=== PATIENT | male | born 1980 | race Caucasian/White ===

== ENCOUNTER 2020-01-10 12:53 | Inpatient (IN) | payer OTHER ==
[~2020-01-10] VITALS: Ht 182.9 cm; Wt 120.2 kg
--- NOTE | ~2020-01-10 | PROC ---
[address] [address] PROCEDURE REPORT Name: TOSHA CONNOR Room: [address] IN ..#: [id number] Admission: 01/10/20 Attend Phys: Trinidad Bello MD Discharge: Date of : 82 Report #: [id number] THIS REPORT FOR: //name// cc: FAM - No family physician/PCP FAM - No family physician/PCP ~ THIS REPORT FOR: //name// For GI report, please see the Provation report in Perceptive 7 content. By: [facility]3Medical Records Staff SUDARSHAN /SHERRY
[2020-01-10 13:04] VITALS: BP 150/93
[2020-01-10] MEDS ORDERED: FLONASE 0.05%50 MCG NARES (13:12)
[2020-01-10] MEDS ORDERED: PROAIR HFA8.5 GM INH (13:12)
[2020-01-10] MEDS ORDERED: SINGULAIR 10 MG10 MG PO (13:12)
[2020-01-10 13:31] LABS: ABSOLUTE BASOPHILS 0.1 thou/uL (0.0-0.2); ABSOLUTE EOSINOPHILS 0.2 thou/uL (0.0-0.7); ABSOLUTE LYMPHOCYTES 1.3 thou/uL (0.8-5.3); ABSOLUTE MONOCYTES 0.8 thou/uL (0.0-1.2); ABSOLUTE NEUTROPHILS 7.7 thou/uL (1.6-8.1); BASOPHILS 0.6 %; EOSINOPHILS 2.3 %; HEMATOCRIT 45.5 % (42.0-52.0); HEMOGLOBIN 16.3 gm/dL (14.0-18.0); LYMPHOCYTES 12.5 %; MCH 30.3 pg (26.0-34.0); MCHC 35.8 g/dL (28.0-37.0); MCV 84.5 fL (80.0-100.0); MONOCYTES 7.5 %; MPV 10.5 fl. (7.2-11.1); NUCLEATED RBCS 0 /100WBC; PLATELET COUNT* 207 thou/uL (150-400); POLYS 77.1 %; RBC 5.38 mil/uL (4.50-6.00); RDW-CV 12.6 % (10.5-14.5)
[2020-01-10 13:35] LABS: ANION GAP 10 mmol/L (7-16); BUN 6 mg/dL (7-18); CALCIUM 8.9 mg/dL (8.5-10.1); CHLORIDE 104 mmol/L (98-107); CO2 26 mmol/L (21-32); GLUCOSE 129 mg/dL (70-99); POTASSIUM 3.6 mmol/L (3.5-5.1); SODIUM 140 mmol/L (136-145)
[2020-01-10 13:47] LABS: ALBUMIN 4.4 g/dL (3.4-5.0); ALKALINE PHOSPHATASE 193 U/L (46-116); SGOT 282 U/L (15-37); SGPT 765 U/L (30-65); TOTAL BILIRUBIN 7.5 mg/dL (<0.1-1.0); TOTAL PROTEIN 7.5 g/dL (6.4-8.2)
[2020-01-10 14:05] LABS: LIPASE > 30000 U/L (73-393)
[2020-01-10 14:10] LABS: URINE BLOOD NEGATIVE (Negative); URINE CLARITY CLEAR; URINE COLOR DARK YELLOW; URINE GLUCOSE-RANDOM NEGATIVE (Negative); URINE KETONES TRACE (Negative); URINE LEUKOCYTES-REFLEX NEGATIVE (Negative); URINE NITRITE-REFLEX NEGATIVE (Negative); URINE PROTEIN NEGATIVE (Negative); URINE SPECIFIC GRAVITY 1.015 (1.005-1.030)
[2020-01-10 14:11] LABS: URINE BILIRUBIN 2+ (Negative)
[2020-01-10 14:13] LABS: ICTOTEST (BILI CONFIRMATORY) Positive (Negative)
[2020-01-10 14:50] VITALS: BP 149/94
--- NOTE | 2020-01-10 15:42 | EKG ---
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 : 1980 Requested By: Salomón Fortune Order Number: [id number] MD: Lavon Tam Measurements Intervals [place] Rate: 74 P: 49 DE: 174 QRS: 26 QRSD: 115 T: 1 QT: 396 QTc: 440 Interpretive Statements Sinus rhythm Nonspecific intraventricular conduction delay Borderline T abnormalities, inferior leads No previous ECG available for comparison Electronically Signed On 01-10-2020 15:41:54 CDT by Lavon Tam [email or web address] <ELECTRONICALLY SIGNED> By: Lavon Tam MD, [facility] 01/10/20 1541 1307 1307 Lavon Tam MD, [facility] /EPI
--- NOTE | 2020-01-10 17:47 | NUR ---
Pt admitted to room 112. Pt is AOx4, at bedside. VSS. Pt c/o severe abdominal pain on arrival, anxious at times. Pt receiving IV fentanyl for pain and tolerated IV bolus of fluids. NS running continuously at 100/hr. Pt is up ad deacon in room. NPO, no n/v this shift. hourly rounding complete, will continue to monitor
--- NOTE | 2020-01-11 04:30 | NUR ---
PT HAD BETTER PAIN CONTROL WITH DILAUDID OVER FENTANYL, DENIES NAUSEA, STATES PAIN IN IN EPIGASTRIC AREA. FIRST VITALS HAD TEMP OF 100.2, MIDNIGHT TEMP WAS 98.4. PT HAS BEEN NPO WITH EXCEPTION OF SPARCE ICE CHIPS TO MOISTEN MOUTH. SAFETY MEASURES IN PLACE, TM
[2020-01-11 05:08] LABS: HEMATOCRIT 41.5 % (42.0-52.0); HEMOGLOBIN 14.6 gm/dL (14.0-18.0); MCH 30.2 pg (26.0-34.0); MCHC 35.2 g/dL (28.0-37.0); MCV 85.8 fL (80.0-100.0); MPV 10.5 fl. (7.2-11.1); RBC 4.84 mil/uL (4.50-6.00); RDW-CV 12.8 % (10.5-14.5); WBC 11.6 thou/uL (4.0-11.0)
[2020-01-11 05:32] LABS: ALBUMIN 3.5 g/dL (3.4-5.0); ALKALINE PHOSPHATASE 162 U/L (46-116); ANION GAP 9 mmol/L (7-16); BUN 12 mg/dL (7-18); CALCIUM 8.5 mg/dL (8.5-10.1); CHLORIDE 109 mmol/L (98-107); CHOLESTEROL 96 mg/dL (<200); CO2 25 mmol/L (21-32); CREATININE 1.3 mg/dL (0.6-1.3); GLUCOSE 96 mg/dL (70-99); HDL CHOLESTEROL 28 mg/dL (>40); LDL CHOLESTEROL 52 mg/dL (<100); MAGNESIUM 1.6 mg/dL (1.8-2.4); POTASSIUM 3.7 mmol/L (3.5-5.1); SGOT 168 U/L (15-37); SGPT 554 U/L (30-65); SODIUM 143 mmol/L (136-145); TC:HDL 3.4 Ratio (Not establshd); TOTAL BILIRUBIN 8.6 mg/dL (<0.1-1.0); TOTAL PROTEIN 5.9 g/dL (6.4-8.2); TRIGLYCERIDE 83 mg/dL (<150); VLDL 17 mg/dL (<40)
[2020-01-11 05:39] LABS: SERUM ASSESSMENT CLEAR
[2020-01-11 05:49] LABS: LIPASE 5464 U/L (73-393)
[2020-01-11 08:15] VITALS: BP 135/61
[2020-01-11 08:46] LABS: PROTIME 10.8 Seconds (9.20-11.50)
--- NOTE | 2020-01-11 14:33 | NUR ---
CM SPOKE TO THE PT TO DISCUSS DISCHARGE PLANNING NEEDS. PT A&O, INDEPENDENT WITH ADL'S, ACTIVE AND WORKS. PT OWNS 0 DME. NO NEEDS ANTICIPATED AT THIS TIME. CM WILL REMAIN AVAIABLE TO ASSIST AND FOLLOW NEEDED.
[2020-01-11 15:07] LABS: IgM 73 mg/dL (20-172)
--- NOTE | 2020-01-11 19:15 | NUR ---
Pt AOx4. Pt had procedure done today, c/o severe pain in abdomen, receiving IV dilaudid to manage pain. Pt is at the bedside and supportive. Pt receiving IVF at 150/hr and IV antibiotics tolerated well. will continue to leigha
[2020-01-12] VITALS: BP 146/89
[2020-01-12 02:06] LABS: HEPATITIS B SURFACE AG Negative (Negative)
[2020-01-12 03:44] VITALS: BP 141/73
[2020-01-12 05:04] LABS: HEMATOCRIT 35.7 % (42.0-52.0); HEMOGLOBIN 12.7 gm/dL (14.0-18.0); MCH 30.2 pg (26.0-34.0); MCHC 35.6 g/dL (28.0-37.0); MCV 84.9 fL (80.0-100.0); MPV 10.4 fl. (7.2-11.1); NUCLEATED RBCS 0 /100WBC
--- NOTE | 2020-01-12 05:10 | NUR ---
PT HAS BEEN SITTING IN HIGH FOWLERS MOST OF THIS SHIFT, HE STATES THAT WHEN HE RECLINES TO LIE ON HIS SIDE HE HAS PRESSURE IN MID EPIGASTRIC AREA. HAD MEDS FOR PAIN BUT DENIES NAUSEA, HE HAS WORN CONTINUOUS PULSE OX ALL HS WITH SATS IN 95-100% LEAVING 2L PER NC IN PLACE. HE IS COUGHING AND DEEP BREATHING WELL USING IS AT BEDSIDE. SAFETY MEASURES IN PLACE, WCTM
[2020-01-12 05:27] LABS: ALBUMIN 3.2 g/dL (3.4-5.0); CALCIUM 8.1 mg/dL (8.5-10.1); CREATININE 0.9 mg/dL (0.6-1.3); POTASSIUM 3.6 mmol/L (3.5-5.1); TOTAL BILIRUBIN 21.1 mg/dL (<0.1-1.0); TOTAL PROTEIN 5.6 g/dL (6.4-8.2)
[2020-01-12 05:32] LABS: MAGNESIUM 1.6 mg/dL (1.8-2.4)
[2020-01-12 05:34] LABS: % SATURATION 61 % (20-39); IRON 143 ug/dL (50-175)
[2020-01-12 06:02] LABS: PLATELET COUNT* 46 thou/uL (150-400)
[2020-01-12 07:13] LABS: LYMPHOCYTES ND %; POLYS ND %
[2020-01-12 07:18] LABS: HEMATOCRIT 34.9 % (42.0-52.0); HEMOGLOBIN 12.5 gm/dL (14.0-18.0); MCH 30.5 pg (26.0-34.0); MCHC 35.8 g/dL (28.0-37.0); MCV 85.4 fL (80.0-100.0); MPV 9.2 fl. (7.2-11.1); NUCLEATED RBCS 0 /100WBC; RBC 4.08 mil/uL (4.50-6.00); RDW-CV 12.9 % (10.5-14.5); WBC 11.5 thou/uL (4.0-11.0)
[2020-01-12 07:24] LABS: PLATELET COUNT* 41 thou/uL (150-400)
[2020-01-12 07:30] LABS: ABSOLUTE EOSINOPHILS 0.2 thou/uL (0.0-0.7); ABSOLUTE LYMPHOCYTES 0.5 thou/uL (0.8-5.3); ABSOLUTE MONOCYTES 0.1 thou/uL (0.0-1.2); ABSOLUTE NEUTROPHILS 10.7 thou/uL (1.6-8.1); ATYPICAL LYMPHS 1 %; PLATELET ESTIMATE DECREASED
[2020-01-12 08:00] VITALS: BP 139/89
[2020-01-12] MEDS ORDERED: PROTONIX IV40 MG IVPUSH (08:28)
[2020-01-12] MEDS ORDERED: HYDROMORPHO2 MG/1 M8 IVPUSH (08:28)
[2020-01-12] MEDS ORDERED: NICOTINE TRANSD14 M1 TRANSDERM (08:28)
[2020-01-12] MEDS ORDERED: CEFEPIME-D1 GM/50 ML IV (08:28)
[2020-01-12 08:45] LABS: APTT 27.6 Seconds (25.0-31.3); INR 1.1; PROTIME 11.1 Seconds (9.20-11.50)
--- NOTE | 2020-01-12 09:00 | NUR ---
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 SHE FAXED INFORMATION TO TRANSFER TEAM, AND HAD RADIOLOGY SEND IMAGES TO CLOUD. THIS CM CALLED TRANSFER TEAM,KRISTOPHER TO CONFIRM RECEIPT OF INFORMATION. 1100- REPORTS, WAS CALLING [employer] AT . PT.UPDATED. AMBULANCE AND EMTALA FORM INITIATED. 1300-GENE CALLED WITH ACCEPTING , . WAITING ON BED ASSIGNMENT. 1330-[facility]/ TRANSFER TEAM, CALLED WITH BED ASSIGNMENT [id number] . NURSE TO CALL REPORT. AMBULANCE ARRANGED WITH [facility] FOR 1430. PT.UPDATED.
[2020-01-12 11:06] LABS: ABSOLUTE EOSINOPHILS 0.2 thou/uL (0.0-0.7); ABSOLUTE LYMPHOCYTES 0.6 thou/uL (0.8-5.3); ABSOLUTE MONOCYTES 0.6 thou/uL (0.0-1.2); ABSOLUTE NEUTROPHILS 8.8 thou/uL (1.6-8.1); BASOPHILS 0.3 %; EOSINOPHILS 2.3 %; HEMATOCRIT 33.6 % (42.0-52.0); HEMOGLOBIN 12.3 gm/dL (14.0-18.0); LYMPHOCYTES 6.2 %; MCH 30.9 pg (26.0-34.0); MCHC 36.6 g/dL (28.0-37.0); MCV 84.6 fL (80.0-100.0); MONOCYTES 6.1 %; MPV 9.1 fl. (7.2-11.1); NUCLEATED RBCS 0 /100WBC; POLYS 85.1 %; RBC 3.97 mil/uL (4.50-6.00); RDW-CV 12.9 % (10.5-14.5); WBC 10.4 thou/uL (4.0-11.0)
[2020-01-12 11:08] LABS: PLATELET COUNT* 41 thou/uL (150-400)
[2020-01-12 11:24] LABS: ALBUMIN 3.2 g/dL (3.4-5.0); CALCIUM 8.1 mg/dL (8.5-10.1); CREATININE 0.9 mg/dL (0.6-1.3); POTASSIUM 3.6 mmol/L (3.5-5.1); TOTAL BILIRUBIN 24.7 mg/dL (<0.1-1.0); TOTAL PROTEIN 5.6 g/dL (6.4-8.2)
[2020-01-12 14:55] VITALS: BP 148/98
--- NOTE | 2020-01-12 15:00 | NUR ---
A&OX4, JAUNDICE, WARM AND DRY. IV 20 G LEFT AC WITH NS AT 150ML/HR. C/O EPIGASTRIC PAIN 09/14 AND REQUESTING PAIN MEDICATION PRIOR TO TRANSFERING TO ROOM [facility] VIA AMABULANCE. REPORT CALLED TO NEAL CARVALHO RN.
[2020-01-13 05:08] LABS: EBNA-1 IgG <18.0 U/mL (0.0-17.9); EBV VCA IgM <36.0 U/mL (0.0-35.9)
[2020-01-13 06:06] LABS: IgG 772 mg/dL (603-1613)
--- NOTE | 2020-01-13 13:54 | CON ---
[address] [address] CONSULTATION Name: NIKOLASTOSHA J Room: [address]#: [id number] Admission: 01/10/20 Attend Phys: Trinidad Bello MD Discharge: 01/12/20 Date of : 82 Report #: [id number] THIS REPORT FOR: //name// cc: BRANDEN - No family physician/PCP FAM - No family physician/PCP ~ THIS REPORT FOR: //name// CC: [facility] physician/PCP Trinidad Bello DICTATED BY: Hilda Dsouza [facility] DATE OF SERVICE: 01/11/2020 The patient does not have a PCP. Please note at the time of this dictation, the patient was seen and physically examined by myself. REASON FOR CONSULTATION: Pancreatitis. HISTORY OF PRESENT ILLNESS: This is a 39-year-old male who presented to the Emergency Room with worsening of abdominal pain. He states his pain started on Wednesday and initially feeling pressure in the upper epigastric area, then it seemed to have gotten better on Wednesday and Wednesday and then around 11:00 yesterday morning, he states that it was so severe, brought him to his knees while he was at work. He said the pain was very sharp and stabbing. He felt very nauseated; however, did not vomit. He states that he had been noticing his urine began very dark as well as his stool began very pale looking yesterday. Currently, he is not complaining of as much nausea. His pain is much improved. If he is lying perfectly still, it rates around 2-3. If he gets up and moves around, it has improved, it is only around 7. The patient states he was told about 7 years ago "bad gallbladder" and he has just had episodes off and on, but very mild in occurrence except for the one that he had yesterday. ALLERGIES: No known drug allergies. MEDICATIONS FROM HOME: None. FAMILY HISTORY: Negative for any GI or female cancers. SOCIAL HISTORY: , lives with his . He does chew tobacco, occasional. Alcohol use socially and occasional marijuana use as well. REVIEW OF SYSTEMS: Twelve-point review of systems is essentially negative except what [place] [address] CONSULTATION Name: TOSHA CONNOR Karley Room: [address]#: [id number] Admission: 01/10/20 Attend Phys: Trinidad Bello MD Discharge: 01/12/20 Date of : 82 Report #: [id number] PHYSICAL EXAMINATION: VITAL SIGNS: He is afebrile, blood pressure 149/94, pulse in the 80s, respirations 19. LABORATORY DATA: Hemoglobin 14.6, white count is 11.6, platelets is 122. GFR is 62. Lipase on admission was greater than 30,000; he is currently down to 5464. Total bilirubin on admission was 7.5, he is up to 8.6 today. Alkaline phosphatase was 193, he is down to 162. ALT was 765, he is down to 554 and AST was 282, he is down to 168. CT showed no gallbladder abnormality or stones or ductal dilatation. Pancreas showed moderate edema surrounding. Triglycerides were only 83 as well. IMPRESSION: 1. Abdominal pain secondary to pancreatitis. 2. Nausea, improved. 3. Elevated liver function tests. 4. Jaundice secondary to elevated liver function tests. 5. Thrombocytopenia. 6. Leukocytosis. PLAN: 1. MRCP and ultrasound pending this a.m. 2. Labs pending acute hepatitis panel, AMA, ASMA, IgM, IgG subclasses, ALEXANDR and labs tomorrow, CBC and CMP. 3. We will continue his IV fluids and n.p.o. 4. Further recommendations to be made once the above have been noted. Thank you for allowing us to participate in this patient's care. Please do not hesitate to call with any questions in regard to this consult. <ELECTRONICALLY SIGNED> By: Odin Goldberg DO 01/13/20 1354 [id number] Goldberg DO /nt
== END 2020-01-12 15:10 | disposition short-term general hospital (02) | DRG 438 ==
LOC: M.ERS 12:53 → M.ORTHSURG 14:19 → M.TBA-ER 14:19 → M.ORTHSURG 15:15
PROVIDERS: Family Medicine; Internal Medicine; Internal Medicine Gastroenterology; Nurse Practitioner Adult Health; ADMIT Internal Medicine; ATTEND Internal Medicine
DX: K85.10 Biliary acute pancreatitis without necrosis or infection (principal); K72.00 Acute and subacute hepatic failure without coma; J45.40 Moderate persistent asthma, uncomplicated; F12.90 Cannabis use, unspecified, uncomplicated; D69.6 Thrombocytopenia, unspecified; D72.829 Elevated white blood cell count, unspecified; F17.210 Nicotine dependence, cigarettes, uncomplicated; Z20.828 Contact with and (suspected) exposure to other viral communicable diseases; Z79.899 Other long term (current) drug therapy